=== PATIENT | male | born 1975 | race Hispanic/Latino ===

== ENCOUNTER 2018-11-28 18:09 | Emergency (ER) | payer BC, SELFPAY ==
[2018-11-28 19:50] LABS: Urine Blood NEGATIVE (NEG); Urine Glucose NEGATIVE (NEG); Urine Protein NEGATIVE (NEG); Urine Specific Gravity 1.015 (1.005-1.030); Urine pH 7.5 (5.0-7.0)
[2018-11-28 20:05] LABS: ALT/SGPT 68 U/L (12-78); AST/SGOT 69 U/L (15-37); Albumin 4.1 g/dL (3.4-5.0); Alkaline Phosphatase 143 U/L (45-117); BUN Blood Urea Nitrogen 12 mg/dL (7-18); Bicarbonate 29 mmol/L (21-32); Bilirubin Direct 0.4 mg/dL (0-0.2); Glucose Level 105 mg/dL (74-106); Lipase 155 U/L (73-393); Potassium 3.6 mmol/L (3.5-5.1); Protein, Total 7.6 g/dL (6.4-8.2); Sodium Level 142 mmol/L (136-145)
[2018-11-28 20:14] LABS: Absolute Lymphocytes (CBC) 1.8 K/uL (0.7-4.9); Absolute Neutrophil 7.6 K/uL (1.8-8.0); Basophils % 0.4 % (0-1.3); Eosinophils % 3.9 % (0-4.4); Hematocrit 45.8 % (39.6-49.0); Lymphocytes % 16.8 % (15.3-44.8); MPV 8.7 fL (7.6-11.3)
--- NOTE | 2018-11-28 20:20 | RAD REPORT ---
EXAM DESCRIPTION: US - Abdomen Exam Limited - 11/28/2018 8:14 pm CLINICAL HISTORY: right upper abdomen pain COMPARISON: No comparisons FINDINGS: The gallbladder demonstrates no gallstones. No pericholecystic fluid or gallbladder wall t hickening. The common bile duct is normal measuring 4 mm. The liver demonstrates no findings of intrahepatic biliary dilatation. IMPRESSION: Unremarkable examination.
[2018-11-28] MEDS ORDERED: MAGNE/ALUM HYDROXD 30 ML UCUP ONE (20:55)
[2018-11-28] MEDS ORDERED: LIDOCAINE VISCOUS 2% SOLN 15 ML UDC ONE (20:55)
--- NOTE | 2018-11-28 21:10 | ER ---
Nurse's Notes [facility] Name: Quan Donovan Age: 43 yrs Sex: Male : 1975 Arrival Date: 11/28/2018 Time: 18:14 Bed 28 Private MD: Diagnosis: Upper abdominal pain, unspecified Presentation: 11/28 18:20 Presenting complaint: Patient states: RUQ pain. Pt states "It started about a month ago aa5 and today it's the third time I've had this pain". Pt denies N/V/D. Transition of care: patient was not received from another setting of care. Onset of symptoms was November 28, 2018. Risk Assessment: Do you want to hurt yourself or someone else? Patient reports no desire to harm self or others. Initial Sepsis Screen: Does the patient meet any 2 criteria? No. Patient's initial sepsis screen is negative. Does the patient have a suspected source of infection? No. Patient's initial sepsis screen is negative. Care prior to arrival: None. 18:20 Method Of Arrival: Ambulatory aa5 18:20 Acuity: KHOI 3 aa5 Historical: - Allergies: 18:21 No Known Allergies; aa5 - Home Meds: 18:21 None [Active]; aa5 - PMHx: 18:21 None; aa5 - PSHx: 18:21 None; aa5 - Immunization history:: Flu vaccine is not up to date. - Social history:: Smoking status: Patient/guardian denies using tobacco. - Ebola Screening: : No symptoms or risks identified at this time. Screenin:00 Abuse screen: Denies threats or abuse. Nutritional screening: No deficits noted. jb4 Tuberculosis screening: No symptoms or risk factors identified. Fall Risk IV access (20 points). Total Panchal Fall Scale indicates No Risk (0-24 pts). Assessment: 19:35 General: Appears in no apparent distress. uncomfortable, Behavior is calm, cooperative, jb4 appropriate for age. Pain: Complains of pain in right upper quadrant Pain does not radiate. Pain currently is 4 out of 10 on a pain scale. Quality of pain is described as aching, sore Pain began 1 month ago Is intermittent. Neuro: Level of Consciousness is awake, alert, obeys commands, Oriented to person, place, time, situation. Cardiovascular: Patient's skin is warm and dry. Respiratory: Airway is patent Respiratory effort is even, unlabored, Respiratory pattern is regular, symmetrical. GI: Abd is soft X 4 quads Abd is non tender in left upper quadrant, right lower quadrant and left lower quadrant Abdomen is tender to palpation in right upper quadrant Patient currently denies diarrhea, nausea, vomiting. : No signs and/or symptoms were reported regarding the genitourinary system. EENT: No signs and/or symptoms were reported regarding the EENT system. Derm: Skin is intact, Skin is pink, warm \\T\\ dry. Musculoskeletal: Circulation, motion, and sensation intact. 20:16 Reassessment: Pt back from ultrasound. jb4 Vital Signs: 18:22 BP 148 / 97; Pulse 96; Resp 16 S; Temp 98.0(TE); Pulse Ox 98% on R/A; Weight 99.79 kg aa5 (R); Height 5 ft. 10 in. (177.80 cm) (R); Pain 8/10; 19:27 BP 153 / 97; Pulse 79; Resp 16; Pulse Ox 98% on R/A; jb4 20:30 BP 140 / 90; Pulse 83; Resp 16; Pulse Ox 97% on R/A; jb4 21:00 BP 130 / 91; Pulse 70; Resp 16; Pulse Ox 95% on R/A; jb4 18:22 Body Mass Index 31.57 (99.79 kg, 177.80 cm) aa5 ED Course: 18:14 Patient arrived in ED. mr 18:20 Arm band placed on. aa5 18:21 Triage completed. aa5 19:04 Charlie Bowen PA is PHCP. cp 19:04 Artemio Knowles MD is Attending Physician. cp 19:35 Patient has correct armband on for positive identification. Placed in gown. Bed in low jb4 position. Call light in reach. Side rails up X 1. Pulse ox on. NIBP on. 19:35 Initial lab(s) drawn, by me, sent to lab. Inserted saline lock: 20 gauge in right jb4 antecubital area, using aseptic technique. Blood collected. 19:42 Kurtis Pierre RN is Primary Nurse. jb4 20:14 US Abdomen Limited In Process Unspecified. EDMS 21:09 Miah Narayan MD is Referral Physician. cp 21:23 No provider procedures requiring assistance completed. IV discontinued, intact, jb4 bleeding controlled. Administered Medications: 20:45 Drug: GI Cocktail without - (Maalox Suspension 30 ml, Lidocaine Liquid 2 % 15 jb4 ml) Route: PO; 21:15 Follow up: Response: No adverse reaction; Pain is decreased jb4 Outcome: 21:10 Discharge ordered by MD. cp 21:23 Discharged to home ambulatory, with significant other. jb4 21:23 Condition: stable 21:23 Discharge instructions given to patient, significant other, Instructed on discharge instructions, follow up and referral plans. medication usage, Demonstrated understanding of instructions, follow-up care, medications, Prescriptions given X 1. 21:25 Patient left the ED. jb4 Signatures: Dispatcher [employer] [facility] Coby Eckret KaliArgelia, RN RN aa5 Charlie Bowen PA PA Kurtis Mendoza, RN RN jb4
--- NOTE | 2018-11-28 21:10 | EDPHYS ---
Physician Documentation [facility] Name: Quan Donovan Age: 43 yrs Sex: Male : 1975 Arrival Date: 11/28/2018 Time: 18:14 Bed 28 Private MD: ED Physician Artemio Knowles HPI: 11/28 19:20 This 43 yrs old Male presents to ER via Ambulatory with complaints of cp Abdominal Pain. 19:20 The patient presents with abdominal pain in the right upper quadrant. Onset: The cp symptoms/episode began/occurred 1 month(s) ago, returned today and has been persistent. The symptoms do not radiate. Associated signs and symptoms: Pertinent negatives: anorexia, chest pain, constipation, diarrhea, fever, hematuria, shortness of breath, vomiting. The symptoms are described as waxing/waning. Modifying factors: The symptoms are alleviated by nothing, the symptoms are aggravated by nothing. Severity of pain: in the emergency department the pain is unchanged despite home interventions. Historical: - Allergies: 18:21 No Known Allergies; aa5 - Home Meds: 18:21 None [Active]; aa5 - PMHx: 18:21 None; aa5 - PSHx: 18:21 None; aa5 - Immunization history:: Flu vaccine is not up to date. - Social history:: Smoking status: Patient/guardian denies using tobacco. - Ebola Screening: : No symptoms or risks identified at this time. ROS: 19:30 Constitutional: Negative for body aches, chills, fever, poor PO intake. cp 19:30 Eyes: Negative for injury, pain, redness, and discharge. cp 19:30 Cardiovascular: Negative for chest pain, edema, palpitations. 19:30 Respiratory: Negative for cough, shortness of breath, wheezing. 19:30 Abdomen/GI: Positive for abdominal pain, Negative for vomiting, diarrhea, constipation, anorexia, black/tarry stool, rectal bleeding. 19:30 Back: Negative for pain at rest, pain with movement, radiated pain. 19:30 : Negative for urinary symptoms, flank pain. 19:30 Skin: Negative for cellulitis, rash. 19:30 Neuro: Negative for altered mental status, dizziness, headache, weakness. 19:30 All other systems are negative. Exam: 19:35 Constitutional: The patient appears in no acute distress, alert, awake, cp non-diaphoretic, non-toxic, well developed, well nourished. 19:35 Head/Face: Normocephalic, atraumatic. Eyes: Pupils equal round and reactive to light, cp extra-ocular motions intact. Lids and lashes normal. Conjunctiva and sclera are non-icteric and not injected. Cornea within normal limits. Periorbital areas with no swelling, redness, or edema. ENT: Nares patent. No nasal discharge, no septal abnormalities noted. Tympanic membranes are normal and external auditory canals are clear. Oropharynx with no redness, swelling, or masses, exudates, or evidence of obstruction, uvula midline. Mucous membranes moist. Chest/axilla: Normal chest wall appearance and motion. Nontender with no deformity. No lesions are appreciated. Cardiovascular: Regular rate and rhythm with a normal S1 and S2. No gallops, murmurs, or rubs. Normal PMI, no JVD. No pulse deficits. Respiratory: Lungs have equal breath sounds bilaterally, clear to auscultation and percussion. No rales, rhonchi or wheezes noted. No increased work of breathing, no retractions or nasal flaring. 19:35 Abdomen/GI: Inspection: abdomen appears normal, Bowel sounds: active, all quadrants, Palpation: soft, in all quadrants, mild abdominal tenderness, in the right upper quadrant, rebound tenderness, is not appreciated, voluntary guarding, is not appreciated, involuntary guarding, is not appreciated. 19:35 Back: pain, is absent, ROM is normal, CVA tenderness, is absent. 19:35 Skin: cellulitis, is not appreciated, no rash present. Vital Signs: 18:22 BP 148 / 97; Pulse 96; Resp 16 S; Temp 98.0(TE); Pulse Ox 98% on R/A; Weight 99.79 kg aa5 (R); Height 5 ft. 10 in. (177.80 cm) (R); Pain 8/10; 19:27 BP 153 / 97; Pulse 79; Resp 16; Pulse Ox 98% on R/A; jb4 20:30 BP 140 / 90; Pulse 83; Resp 16; Pulse Ox 97% on R/A; jb4 21:00 BP 130 / 91; Pulse 70; Resp 16; Pulse Ox 95% on R/A; jb4 18:22 Body Mass Index 31.57 (99.79 kg, 177.80 cm) aa5 MDM: 19:07 Patient medically screened. cp 20:00 Differential diagnosis: appendicitis, cholecystitis, Cholelithiasis, diverticulitis, cp gastritis, gastroesophageal reflux disease, GI Bleed, non-specific abd pain, pancreatitis, Peptic Ulcer Disease, Perf. Duodenal Ulcer, Perf. Gastric Ulcer, Pyelonephritis, Ureterolithiasis, urinary tract infection. 21:10 Data reviewed: vital signs, nurses notes, lab test result(s), radiologic studies, cp ultrasound. 21:10 Counseling: I had a detailed discussion with the patient and/or guardian regarding: the cp historical points, exam findings, and any diagnostic results supporting the discharge/admit diagnosis, lab results, radiology results, to return to the emergency department if symptoms worsen or persist or if there are any questions or concerns that arise at home. Response to treatment: the patient's symptoms have markedly improved after treatment. Special discussion: Based on the patient's Hx, exam, and Dx evaluation, there is no indication for emergent surgery or inpatient Tx. It is understood by the patient/guardian that if the Sx's persist or worsen they need to return immediately for re-evaluation. ED course: VSS. Labs reviewed and US negative for acute findings or gallstones. Will discharge to home for continued monitoring. 11/28 19:13 Order name: Basic Metabolic Panel; Complete Time: 20:07 cp 11/28 19:13 Order name: CBC with Diff; Complete Time: 20:34 cp 11/28 19:13 Order name: Creatinine for Radiology; Complete Time: 20:07 cp 11/28 19:13 Order name: Hepatic Function; Complete Time: 20:07 cp 11/28 19:13 Order name: Lipase; Complete Time: 20:07 cp 11/28 19:43 Order name: Urine Dipstick--Ancillary (enter results); Complete Time: 20:07 cm6 11/28 19:13 Order name: US Abdomen Limited; Complete Time: 20:34 cp 11/28 19:13 Order name: IV Saline Lock; Complete Time: 19:42 cp 11/28 19:13 Order name: Labs collected and sent; Complete Time: 19:42 cp 11/28 19:13 Order name: NPO; Complete Time: 19:42 cp 11/28 19:13 Order name: Urine Dipstick-Ancillary (obtain specimen); Complete Time: 19:42 cp Administered Medications: 20:45 Drug: GI Cocktail without - (Maalox Suspension 30 ml, Lidocaine Liquid 2 % 15 jb4 ml) Route: PO; 21:15 Follow up: Response: No adverse reaction; Pain is decreased jb4 Disposition: 11/28/18 21:10 Discharged to Home. Impression: Upper abdominal pain, unspecified. - Condition is Stable. - Discharge Instructions: Abdominal Pain, Adult, Gastritis, Adult. - Prescriptions for Protonix 40 mg Oral Tablet, Delayed Release (E.C.) - take 1 tablet by ORAL route once daily for 10 days; 10 tablet. - Medication Reconciliation Form, Thank You Letter, Antibiotic Education, Prescription Opioid Use form. - Follow up: Miah Narayan MD; When: 2 - 3 days; Reason: pain continues. - Problem is new. - Symptoms have improved. Signatures: Dispatcher [employer] EDME Argelia Bass, RN RN aa5 Charlie Bowen PA PA cp Kurtis Pierre RN RN jb4 Corrections: (The following items were deleted from the chart) 21:25 21:10 11/28/2018 21:10 Discharged to Home. Impression: Upper abdominal pain, jb4 unspecified. Condition is Stable. Forms are Medication Reconciliation Form, Thank You Letter, Antibiotic Education, Prescription Opioid Use. Follow up: Miah Narayan; When: 2 - 3 days; Reason: pain continues. Problem is new. Symptoms have improved. cp
== END 2018-11-28 21:25 | disposition home or self-care (01) ==
LOC: ER 18:09
DX: R10.11 Right upper quadrant pain (principal)
CPT/HCPCS: 36415; 76705; 80048; 80076; 81003; 83690; 85025; 99284